=== PATIENT | female | born 1975 | race Asian ===

== ENCOUNTER → 2016-07-25 | Outpatient (CLI) | payer MEDICAID ==
--- NOTE | 2016-07-25 09:30 | US ---
Transabdominal and Transvaginal Early Obstetric Ultrasound History: Uncertain LMP, IUD removed 05/17/2016 with no menses since, with spotting in the past week. Positive test reported in recent office visit. Comparison: None available. Findings: There is no visible intrauterine gestation. There are cystic changes in the inferior endome trium near and in the endocervical canal, with a nabothian cyst noted. scar is noted anteri jose. There is a subserosal exophytic 2.1 x 1.1 x 1.3 cm anterior fundal fibroid. The uterus measures 8.5 x 5.5 x 4.7 cm. The right ovary measures 3.3 x 1.6 x 2.6 cm and the left ovary measures 2.5 x 1.6 x 2.7 cm. A complex cyst in the right ovary measures 1.4 x 0.9 x 1.4 cm. Normal arterial blood flow is documented to bot h ovaries by Doppler ultrasound. No adnexal masses are present. There is no significant free fluid. Impression: 1. No visible intrauterine gestation. Correlation with hCG is recommended with serial ultrasound as c linically warranted. 2. 1.4 cm probable hemorrhagic corpus luteum in the right ovary. Ultrasound could be performed in six weeks to document resolution.
== END ==
LOC: CIMAGING 07:36
PROVIDERS: ATTEND Family Medicine
DX: Z34.81 Encounter for supervision of other normal pregnancy, first trimester (principal); D25.9 Leiomyoma of uterus, unspecified

== ENCOUNTER → 2016-08-09 | Outpatient (CLI) | payer MEDICAID | LOC: FIMAGING 09:38 | DX: Z12.31 Encounter for screening mammogram for malignant neoplasm of breast (principal) | CPT/HCPCS: G0202 ==

== ENCOUNTER → 2016-09-06 | Outpatient (CLI) | payer MEDICAID | LOC: FIMAGING 09:36 | PROVIDERS: ATTEND Nurse Practitioner Women's Health | DX: R59.0 Localized enlarged lymph nodes (principal) ==

== ENCOUNTER → 2017-09-21 | Outpatient (CLI) | payer MEDICAID | LOC: FIMAGING 09:23 | PROVIDERS: ATTEND Physician Assistant | DX: Z12.31 Encounter for screening mammogram for malignant neoplasm of breast (principal) ==